=== PATIENT | female | born 1985 | race Caucasian/White ===

== ENCOUNTER 2016-07-05 06:38 | Inpatient (IN) | payer OTHER ==
[~2016-07-05] VITALS: Ht 172.7 cm; Wt 72.6 kg
[2016-07-05] VITALS (13 sets, daily range): BP systolic 101–112; BP diastolic 63–71; PULSE 60–64; TEMP 36.3–36.8; O2SAT 98–100; Ht 172.7 cm; Wt 72.6 kg
[~2016-07-05 06:38] MED LIST: CEFAZOLIN IV 2,000 MG in DEXTROSE 5% 50ML IV SCH; CITRIC ACID/SODIUM CITRATE 15 ML UDC PO SCH; LACTATED RINGER'S 1000ML 1,000 ML IV SCH; MULT-506 PO
[2016-07-05] MEDS ORDERED: LACTATED RINGER'S 1000ML 1,000 ML IV ONE (06:41)
[2016-07-05 06:58] LABS: BASO % 0.2 %; BASO ABS # 0.02 K/uL (0-0.2); COMPLETE YES; EOS % 0.4 %; HEMATOCRIT 36.7 % (37-47); IG% 0.6 %; LYMPH % 21.1 %; LYMPH ABS # 2.27 K/uL (1.2-3.4); MEAN CELL VOLUME 92.7 fL (80-100); MEAN CORPUSCULAR HEMOGLOBIN 32.1 pg (25-34); MEAN CORPUSCULAR HGB CONC 34.6 g/dl (32-36); MEAN PLATELET VOLUME 9.1 fL (7.4-10.4); MONO % 9.6 %; NEUT % 68.1 %; PLATELET COUNT 290 K/uL (130-400); RED BLOOD COUNT 3.96 M/uL (4.2-5.4); WHITE BLOOD COUNT 10.78 K/uL (4.8-10.8)
[2016-07-05] MEDS ORDERED: OXYTOCIN INJ 10 UNITS/ML VIAL ONE (07:25)
[2016-07-05] MEDS ORDERED: MoRPHine SULFATE PF 1 MG/ML 10 ML AMP/VIAL ONE (07:25)
[2016-07-05] MEDS ORDERED: FENTANYL CITRATE INJ 50 MCG/1 ML 2 ML VIAL ONE (07:25)
--- NOTE | 2016-07-05 07:33 | History & Physical Bridge Note ---
H&P Re-Evaluation Bridge Note: I have examined the patient, reviewed the History & Physical and in the interval since the performance of the History & Physical I have noted the following changes of clinical significance: No changes noted Bed side US done: Breech presentation
[2016-07-05] MEDS ORDERED: EpHEDrine SULFATE INJ 50 MG/ML AMP IV PRN ×2 (07:45→09:45)
[2016-07-05] MEDS ORDERED: ONDANSETRON INJ 2 MG/ML 2 ML VIAL IV PRN (07:45)
[2016-07-05] MEDS ORDERED: ATROPINE SULFATE 0.1 MG/ML 5ML SYR IV PRN (07:45)
[2016-07-05] MEDS ORDERED: FENTANYL CITRATE INJ 50 MCG/1 ML 2 ML VIAL IV PRN (07:45)
[2016-07-05] MEDS ORDERED: PEDI1CHW82 PO (07:50)
[2016-07-05] MEDS ORDERED: MEASLES, MUMPS & RUBELLA VIRUS VIAL SQ. ONE (09:30)
[2016-07-05] MEDS ORDERED: DIPHTHERIA/TETANUS/PERTUSSIS 0.5 ML SYR/VIAL IM. ONE (09:30)
[2016-07-05] MEDS ORDERED: BENZOCAINE 20% AER SPR 82.5 GM CAN EXT PRN (09:30)
[2016-07-05] MEDS ORDERED: SUPERCREAM 0.870 % 15GM JAR EXT PRN (09:30)
[2016-07-05] MEDS ORDERED: MAGNESIUM HYDROXIDE SUSP 30 ML UDC PO PRN (09:30)
[2016-07-05] MEDS ORDERED: HYDROCORTISONE ACETATE 25 MG SUPP PR PRN (09:30)
[2016-07-05] MEDS ORDERED: LANOLIN OINT EXT PRN ×2 (09:30)
[2016-07-05] MEDS ORDERED: SENNA 8.6 MG TAB PO PRN (09:30)
[2016-07-05] MEDS ORDERED: LACTATED RINGER'S 1000ML 1,000 ML IV SCH (09:30)
[2016-07-05] MEDS ORDERED: PROMETHAZINE HCL INJ 25 MG in SODIUM CHLORIDE 0.9% 50ML 50 ML IV PRN (09:30)
--- NOTE | 2016-07-05 09:35 | [facility] Post Operative Brief Note ---
Immediate Operative Summary Operative Date Jul 05, 2016. Pre-Operative Diagnosis Primary Caesarean Section for Breech Presentation; Pt desires Bilateral Tubal Ligation. Post-Operative Diagnosis Same as Preop Procedure(s) Performed Live Female at [address] [facility] Surgeon Dr. Beaulieu Csw Surgeon(s) Dr. Whitehead Estimated Blood Loss 500 ml Findings Apgars 9/9 Fluids (cc crystalloids) 1000 ml Specimens Placenta (Hold) Cord Blood Portions Left and Right Fallopian Tubes Drains 100 ml urine Anesthesia spinal Complication(s) None Disposition L&D
--- NOTE | 2016-07-05 09:41 | Anesthesiology Progress Note ---
Anesthesia Post Op Note Date & Time Jul 05, 2016 at 09:41 Notes Mental Status: alert / awake / arousable, participated in evaluation Pt Amnestic to Procedure: Yes Nausea / Vomiting: adequately controlled Pain: adequately controlled Airway Patency, RR, SpO2: stable & adequate BP & HR: stable & adequate Hydration State: stable & adequate Neuraxial Anesthesia: was administered, sensory block is resolving Anesthetic Complications: no major complications apparent
[2016-07-05] MEDS ORDERED: NALOXONE HCL INJ 0.08 MG in SYRINGE 1.8 ML IV PRN (09:42)
[2016-07-05] MEDS ORDERED: NALOXONE HCL INJ 1 MG in SODIUM CHLORIDE 0.9% 1000ML 1,000 ML IV PRN (09:42)
[2016-07-05] MEDS ORDERED: LACTATED RINGER'S 1000ML 500 ML IV PRN (09:42)
[2016-07-05] MEDS ORDERED: SODIUM CHLORIDE 0.9% 1000ML 1,000 ML IV PRN (09:42)
[2016-07-05] MEDS ORDERED: MoRPHine SULFATE PF 1 MG/ML 10 ML AMP/VIAL EPI PRN (09:45)
[2016-07-05] MEDS ORDERED: NALBUPHINE HCL INJ 10 MG/ML AMP IV PRN (09:45)
[2016-07-05] MEDS ORDERED: NALOXONE HCL 0.4 MG/1 ML VIAL/CARP IV PRN (09:45)
[2016-07-05] MEDS ORDERED: DiphenhydrAMINE HCL 50 MG/ML VIAL IV PRN (09:45)
[2016-07-05] MEDS ORDERED: NO NARCOTICS OR SEDATIVES SCH (09:45)
--- NOTE | 2016-07-05 10:19 | OPERATIVE REPORT ---
DATE OF OPERATION: 07/05/2016 PREOPERATIVE DIAGNOSIS: The patient is a 30-year-old G3, P2-0-0-2 multiparous female at 39 weeks of gestation with breech presentation. Declined external cephalic version and desired Delivery/ section and tubal sterilization. POSTOPERATIVE DIAGNOSIS: Same. PROCEDURE: Primary low transverse with Pfannenstiel skin incision and bilateral tubal ligation with Erica method. SURGEON: Dr. Rg. PRINT PROJECT MANAGER: Dr. Whitehead. ESTIMATED BLOOD LOSS: 500. FLUIDS: 1000 mL of lactated Ringer's. DRAINS: Rhodes drained 100 mL of urine. ANESTHESIA: Spinal, Dr. Dixon. COMPLICATIONS: None. FINDINGS: Baby was a viable female , Apgars 9/9, delivered at ange breech position at 8:46 a.m. Weight is 3410 grams. Maternal findings, normal uterus, fallopian tubes and ovaries. PROCEDURE: The patient was taken to the operating room where spinal anesthesia was given without difficulty. She was placed in dorsal supine position with a leftward tilt. She was prepared and draped in usual sterile fashion. A timeout was done by myself and team, and the patient agreed again for the surgery as primary and bilateral tubal ligation. The skin was tested and found to have adequate anesthesia. Then a Pfannenstiel skin incision was made, carried through to the underlying layer of fascia with the Bovie. Fascia was incised in the midline and incision extended laterally with the help of Verde scissors. Lower aspect of the fascial incision was then grasped with 2 Onur clamps, elevated, underlying rectus muscles were dissected off sharply with Verde scissors. Upper aspect of the fascial incision was grasped with 2 Onur clamps and elevated. The underlying rectus muscles were dissected sharply and bluntly with Verde scissors and the rectus muscles were in the midline. Peritoneum was entered sharply, elevating with the pickups and with the Metzenbaum scissors and the peritoneal incision was extended superiorly and inferiorly with good visualization of the bladder. Bladder blade was inserted. Vesicouterine peritoneum was identified, grasped with pickups, entered sharply with Metzenbaum scissors. Bladder flap was created digitally and the bladder blade was reinserted. The lower uterine segment was incised in transverse fashion. Incision was extended laterally. Amniotic membranes were ruptured and clear fluid was obtained and the baby's buttocks and legs delivered without difficulty and then the body and then arms, neck flexion position and then the head without any difficulty. Mouth and nose were suctioned by Dr. Shipman, who is the melter loader scrubbed into the case. The cord was clamped x2 and cut and the baby was taken by the melter loader. Then placenta was delivered manually as intact and complete. Uterus was exteriorized, cleared of all clots and debris. Incision was repaired with 0 Vicryl in a running locked fashion. A second imbricating layer was placed with 0 Vicryl in a running locked fashion. Excellent hemostasis was achieved. Then the right fallopian tube was held with Tito clamps from avascular mesosalpinx. It was tied under the loop made with plain 2/0 cat gut. Another tie was placed under the 1st tie. Then the fallopian tube was excised about 3 cm lenght and send to pathology. The base of the tube was cauterized with the Bovie. Then the left fallopian tube was held with Tito clamps from avascular mesosalpinx. It was tied under the loop made with plain 2/0 cat gut. Another tie was placed under the 1st tie. Then the fallopian tube was excised about 3 cm length and send to pathology. Excellent hemostasis was achieved. The uterus was returned to the abdomen and pelvis was irrigated with warm normal saline and suctioned. Incision was checked to be again hemostatic. Parietal peritoneum was identified, grasped with small Herlinda clamps and reapproximated with 3-0 Vicryl in a running fashion. Rectus muscles were reapproximated with the same suture of 0 Vicryl in a running fashion and good hemostasis was achieved. The rectus fascia was reapproximated with 0 Vicryl in a running fashion starting from the 2 corners meeting in the midline. Subcuticular tissue was brought together with 3-0 Vicryl in a running fashion. Skin was closed with 4-0 Monocryl in a subcuticular fashion and covered with Steri-Strips. The patient tolerated the procedure well. Sponge, lap, needle counts were correct x3. She was given 2 grams of cefazolin before surgery. She was taken to recovery room in stable condition. I attest to the content of the Intraoperative Record and any orders documented therein. Any exceptions are noted below. ALAINA
[2016-07-05] MEDS: KETOROLAC TROMETHAMINE 30 MG/ML VIAL IV. PRN ×2 (10:45→17:39)
[2016-07-05] MEDS: OXYTOCIN INJ 20 UNITS in LACTATED RINGER'S 1000ML 1,000 ML IV SCH ×2 (11:05→20:01)
[2016-07-05] MEDS: SIMETHICONE 80 MG CHEW PO SCH ×3 (12:00→20:02)
[2016-07-05] MEDS: MEPERIDINE HCL 25 MG/ML CARP IV PRN ×2 (12:52→13:06)
[2016-07-05] MEDS: DOCUSATE SODIUM 100 MG CAP PO SCH (20:02)
[2016-07-06] VITALS (7 sets, daily range): BP systolic 101–110; BP diastolic 63–67; PULSE 55–66; TEMP 36.4–36.8; O2SAT 97–100
[2016-07-06] MEDS ORDERED: DC INTRASPINAL MORPHINE SCH (02:30)
[2016-07-06] MEDS ORDERED: MEPERIDINE HCL 50 MG/ML CARP IV PRN (02:31)
[2016-07-06] MEDS ORDERED: ONDANSETRON INJ 2 MG/ML 2 ML VIAL IV PRN (02:31)
[2016-07-06] MEDS ORDERED: MEPERIDINE HCL 75 MG/ML CARP IV PRN (02:31)
[2016-07-06] MEDS ORDERED: DiphenhydrAMINE HCL 50 MG/ML VIAL IV PRN (02:31)
[2016-07-06] MEDS ORDERED: KETOROLAC TROMETHAMINE 30 MG/ML VIAL IV. PRN (02:31)
[2016-07-06] MEDS ORDERED: OXYCODONE/ACETAMINOPHEN 5-325 TAB PO PRN ×2 (02:31)
[2016-07-06 07:43] LABS: BASO % 0.1 %; BASO ABS # 0.01 K/uL (0-0.2); COMPLETE YES; EOS % 0.4 %; HEMATOCRIT 38.7 % (37-47); IG% 0.4 %; LYMPH % 12.9 %; LYMPH ABS # 1.71 K/uL (1.2-3.4); MEAN CELL VOLUME 93.3 fL (80-100); MEAN CORPUSCULAR HEMOGLOBIN 31.3 pg (25-34); MEAN CORPUSCULAR HGB CONC 33.6 g/dl (32-36); MEAN PLATELET VOLUME 9.2 fL (7.4-10.4); MONO % 7.7 %; NEUT % 78.5 %; PLATELET COUNT 254 K/uL (130-400); RED BLOOD COUNT 4.15 M/uL (4.2-5.4)
--- NOTE | 2016-07-06 08:05 | Surgery Progress Note ---
Surgery Progress Note Date of Service Jul 06, 2016. Subjective Post OP Day: 1 + ambulating, + feeling well, + flatus, + pain controlled Objective Vital Signs: Date Time Temp Pulse Resp B/P Pulse Ox O2 Delivery O2 Flow Rate FiO2 07/06/16 05:30 36.8 60 16 110/65 Room Air 07/06/16 01:00 16 98 07/06/16 00:30 36.7 55 16 110/65 98 Room Air 07/06/16 00:30 98 Room Air 07/06/16 00:00 14 98 07/05/16 23:00 14 98 07/05/16 22:00 16 98 07/05/16 21:00 16 100 07/05/16 20:30 36.8 60 20 112/71 100 Room Air 07/05/16 20:00 20 100 07/05/16 19:00 16 99 07/05/16 18:00 20 100 07/05/16 17:00 16 99 07/05/16 16:15 100 Room Air 07/05/16 16:15 36.3 64 16 105/66 100 Room Air 07/05/16 16:00 16 100 07/05/16 15:00 16 100 07/05/16 13:00 36.3 64 20 110/65 100 Room Air 07/05/16 13:00 20 100 07/05/16 12:00 20 99 07/05/16 12:00 64 16 101/63 99 Room Air 07/05/16 12:00 98 Room Air 07/05/16 12:00 99 Room Air General Appearance: no apparent distress Abdomen: non tender, non distended Incision(s): clean, dry, intact Extremities: non-tender, normal inspection, no pedal edema Laboratory Results: Results Past 24 Hours Test 07/06/16 07:25 Range/Units White Blood Count 13.30 4.8-10.8 K/uL Red Blood Count 4.15 4.2-5.4 M/uL Hemoglobin 13.0 12.0-16.0 g/dL Hematocrit 38.7 37-47 % Mean Corpuscular Volume 93.3 80-100 fL Mean Corpuscular Hemoglobin 31.3 25-34 pg Mean Corpuscular Hemoglobin Concent 33.6 32-36 g/dl Platelet Count 254 130-400 K/uL Mean Platelet Volume 9.2 7.4-10.4 fL Neutrophils (%) (Auto) 78.5 % Lymphocytes (%) (Auto) 12.9 % Monocytes (%) (Auto) 7.7 % Eosinophils (%) (Auto) 0.4 % Basophils (%) (Auto) 0.1 % Neutrophils # (Auto) 10.46 1.4-6.5 K/uL Lymphocytes # (Auto) 1.71 1.2-3.4 K/uL Monocytes # (Auto) 1.02 0.11-0.59 K/uL Eosinophils # (Auto) 0.05 0-0.5 K/uL Basophils # (Auto) 0.01 0-0.2 K/uL RDW Standard Deviation 44.9 36.4-46.3 fL RDW Coefficient of Variation 13.3 11.5-14.5 % Immature Granulocyte % (Auto) 0.4 % Immature Granulocyte # (Auto) 0.05 0.00-0.02 K/uL Assessment & Plan regular diet POD#1 advance care and diet
[2016-07-06] MEDS: FERROUS SULFATE 325 MG TAB PO SCH (08:23)
[2016-07-06] MEDS: PRENATAL VITAMIN TAB PO SCH (08:23)
[2016-07-06] MEDS: DOCUSATE SODIUM 100 MG CAP PO SCH ×2 (08:23→20:51)
[2016-07-06] MEDS: SIMETHICONE 80 MG CHEW PO SCH ×4 (08:23→20:52)
[2016-07-06] MEDS: IBUPROFEN 600 MG TAB PO PRN ×2 (11:45→15:48)
[2016-07-06] MEDS ORDERED: BISACODYL 5 MG TABEC PO ONE (22:00)
[2016-07-07 07:30] VITALS: BP 101/64; PULSE 54; TEMP 36.4; O2SAT 100
[2016-07-07] MEDS: DOCUSATE SODIUM 100 MG CAP PO SCH ×2 (07:34→20:37)
[2016-07-07] MEDS: FERROUS SULFATE 325 MG TAB PO SCH (07:34)
[2016-07-07] MEDS: PRENATAL VITAMIN TAB PO SCH (07:34)
[2016-07-07] MEDS: SIMETHICONE 80 MG CHEW PO SCH ×3 (07:34→20:36)
[2016-07-07] MEDS ORDERED: BISACODYL 10 MG SUPP PR PRN (09:30)
--- NOTE | 2016-07-07 10:02 | Surgery Progress Note ---
Surgery Progress Note Date of Service Jul 07, 2016. Subjective Post OP Day: 2 + diet (Tolerating Po food and Meds), No SOB, No bowel movement, No chest pain, No complaints, No nausea, No using DIRECTOR UTILIZATION MANAGEMENT, No vomiting Objective Vital Signs: Date Time Temp Pulse Resp B/P Pulse Ox O2 Delivery O2 Flow Rate FiO2 07/07/16 07:30 36.4 54 18 101/64 100 Room Air 07/07/16 07:30 100 Room Air 07/07/16 01:00 Room Air 07/06/16 15:41 36.4 66 16 101/63 Room Air 07/06/16 15:30 36.8 56 18 104/66 100 Room Air 07/06/16 15:30 100 Room Air General Appearance: WD/WN, no apparent distress Head: normocephalic, atraumatic Neck: supple, no adenopathy, thyroid normal, no JVD, no carotid bruits, trachea midline Respiratory/Chest: chest non-tender, lungs clear, normal breath sounds, no respiratory distress, no accessory muscle use Cardiovascular: regular rate, rhythm, no edema, no gallop, no JVD, no murmur Abdomen: normal bowel sounds, non tender, non distended, soft, no organomegaly , no pulsatile mass Incision(s): clean, dry, intact, no erythema, no drainage Extremities: normal range of motion, non-tender, normal inspection, no pedal edema, no calf tenderness, normal capillary refill, pelvis stable Laboratory Results: Results Past 24 Hours Test 07/07/16 06:16 Range/Units Hemoglobin 12.8 12.0-16.0 g/dL Hematocrit 38.0 37-47 % Assessment & Plan c/sec day #2 pt doing well anticipate disch tomorrow
[2016-07-07] MEDS: IBUPROFEN 600 MG TAB PO PRN (10:12)
[2016-07-07 16:30] VITALS: BP 106/73; PULSE 64; TEMP 36.7; O2SAT 98
[2016-07-07 23:55] VITALS: BP 110/71; PULSE 65; TEMP 36.6
--- NOTE | 2016-07-08 07:09 | Surgery Progress Note ---
Surgery Progress Note Date of Service Jul 08, 2016. Subjective Post OP Day: 3 + ambulating (+ve), + diet (tolerating ), + feeling well, + flatus, No SOB, No bowel movement, No chest pain, No complaints, No nausea, No using OUTER DIAMETER TECHNICIAN, No vomiting Objective Vital Signs: Date Time Temp Pulse Resp B/P Pulse Ox O2 Delivery O2 Flow Rate FiO2 07/07/16 23:55 Room Air 07/07/16 23:55 36.6 65 18 110/71 Room Air 07/07/16 16:30 36.7 64 18 106/73 98 Room Air 07/07/16 16:30 98 Room Air 07/07/16 07:30 36.4 54 18 101/64 100 Room Air 07/07/16 07:30 100 Room Air Assessment & Plan c/sec day #3 pt doing welldisch home with instructions c/sec day #2 pt doing well anticipate disch tomorrow
[2016-07-08] MEDS ORDERED: OXYC-57 PO (07:12)
[2016-07-08] MEDS ORDERED: CLC100 PO (07:12)
[2016-07-08] MEDS ORDERED: FRRS300 PO (07:12)
[2016-07-08] MEDS ORDERED: MTR600X PO (07:12)
--- NOTE | 2016-07-08 07:13 | Discharge Instructions ---
Discharge Instructions Admission Reason for Admission: Breech Presentation Discharge Discharge Diagnosis / Problem: postop Discharge Goals Goal(s): Routine recovery after surgery Activity Recommendations Activity Limitations: as noted below ACTIVITY RECOMMENDATIONS: * Gradual return to full activity over the next 2-3 weeks. * No lifting - nothing heavier than baby over the next 2-3 weeks. * Do not engage in vigorous exercise, sexual activity or sports until cleared by your physician. * Do not drive or operate any motorized equipment until cleared by your physician. * You may shower/bathe daily. BREAST CARE: If you are not breast feeding: * Wear a supportive bra 24 hours a day for one to two weeks. * Avoid stimulating your breasts and nipples as much as possible during the first few weeks after delivery. * When taking a shower, have the warm water hit your back, not breasts. * When your breasts feel full, apply ice packs. Usually three to four times a day helps ease the discomfort. * Take a mild pain medication (Tylenol/Motrin) when you are uncomfortable. If breast feeding: * Use breast milk to lubricate nipples. Lansinoh cream may be used for sore nipples. You do not need to remove cream prior to breast feeding. If using a different brand of cream, check the label for directions regarding removal of cream prior to nursing. * Wear a supportive bra. * If having problems with breasts or breast feeding, call a [employer] financial[employer] consultant or your health care provider. OVER THE COUNTER MEDICATION: * For discomfort or pain, you may use Acetaminophen (Tylenol), Ibuprofen (Advil ), or Naproxen (Aleve) following the package directions. * For constipation you may use Colace following the package directions. SPECIAL CARE INSTRUCTIONS: When you are discharged from the hospital, it is important for you to follow the instructions listed below: * During the first week at home, you should be able to care for yourself and your baby. In addition, the usual light household activities are encouraged. * Limit your activities to the way you feel. Do not try to clean the house or move furniture. Be sensible. * If you actively engage in sports and have done so up until the time of your delivery, you may resume these activities as soon as you feel able. This may take up to one month or even longer. Use good judgment. * Continue to take your vitamins for at least six weeks after the of your baby. * Your diet need not be limited unless you were on a special diet before your delivery. Breast-feeding mothers need around 2500 calories per day and at least 64-80 ounces of fluid per day (8 to 10 glasses). * You should eat foods from the four major food groups. Crash diets or fad diets are to be avoided. Eating lean meats, fresh fruits and vegetables, low-fat dairy products, high fiber foods and a regular exercise program, will help you get back to your pre- weight without putting your health at risk. * Constipation is sometimes a problem after delivery. Take a mild laxative as needed. If breast feeding, Milk of Magnesia is acceptable to use. You may use a suppository or Fleets enema if no episiotomy. * A daily shower or tub bath is suggested. Be sure to thoroughly and gently dry the perineum. * A bloody vaginal discharge will usually continue until around four weeks post . A small amount of bleeding may continue for as long as six weeks. Vaginal discharge changes from the bright red bleeding after delivery to pink then brownish and finally yellowish-pink before becoming white and disappearing. * Bleeding may increase with activity. Your first period may come in 4-8 weeks. If you are breast feeding, your period may be delayed even longer. * [place] (sex) can begin whenever both you and your partner feel comfortable and do not have any form of genital infection. It is recommended that you wait at least six weeks for internal and external healing to occur. If you have questions, please talk to your health care practitioner. A condom should be used to prevent infection and . * Foreplay, gentle intercourse and lubrication is very important the first several times to prevent pain. A water-based lubricant such as K-Y jelly or Astroglide may be used. * Tampons and/or Douching should be avoided until after six weeks check-up. * If you have RH negative blood and your baby is RH positive, you will receive RHOGAM by injection prior to discharge. The nurse will give you a card to keep with you that has the date and place that you received RHOGAM after delivery. * During your care, you had a Rubella screen done to check for the presence of rubella antibodies in your blood. If your test was negative, you will receive a Rubella vaccine prior to discharge. This vaccine may cause a fever, soreness at the injection site and flu-like symptoms. If these symptoms persist, notify your health care practitioner. is not advised for three months after a Rubella vaccine. * Verbalizes understanding of car seat law as reviewed with patient nursing. * Car Seat hand-out given and reviewed with patient by nursing. * Shaken baby information reviewed with patient by nursing. Call you doctor if: * Heavy bleeding (saturating several pads an hour) or passing clots the size of your fist. * A fever >101 degrees F (38.3 degrees C) on two occasions four hours apart and /or chills. * Unusual pain in the pelvic or vaginal areas. Pain should improve each day . * Call the doctor for any increased redness, drainage or swelling around the incision and any pain unrelieved by prescribed pain medication. * Any signs or symptoms of phlebitis (possible blood clots forming in the veins ): leg pain, warm, red or swollen area on leg. * "Baby Blues" lasting longer than two weeks. If you have any questions or concerns, call your health care practitioner at . FOLLOW-UP VISIT: * Incision check (staple removal) in 1 week. Please call doctor's office at to set up appointment. * Please call the office at to schedule a 6 week examination. It is important you keep this appointment. * It is important for you to make arrangements for either yearly or twice yearly check-ups thereafter. . Current Hospital Diet Patient's current hospital diet: Regular OB Diet Discharge Diet Recommended Diet: Regular Diet Procedures Procedures Performed: Live Female Infant at [address] [facility], BTL Pending Studies Studies pending at discharge: no Medical Emergencies . Who to Call and When: Medical Emergencies: If at any time you feel your situation is an emergency, please call [phone] immediately. . Non-Emergent Contact Non-Emergency issues call your: Specialist . . "Provider Documentation" section prepared by Umesh Cee. VTE Core Measure Inpt VTE Proph given/why not?: Treatment not indicated
[2016-07-08 07:20] VITALS: BP 105/75; PULSE 89; TEMP 36.5
[2016-07-08] MEDS: PRENATAL VITAMIN TAB PO SCH (07:27)
[2016-07-08] MEDS: SIMETHICONE 80 MG CHEW PO SCH (07:27)
[2016-07-08] MEDS: DOCUSATE SODIUM 100 MG CAP PO SCH (07:27)
[2016-07-08] MEDS: FERROUS SULFATE 325 MG TAB PO SCH (07:27)
[2016-07-08] MEDS: IBUPROFEN 600 MG TAB PO PRN ×2 (07:28→13:06)
[2016-07-08 13:31] VITALS: BP_DIAS 75; PULSE 89; TEMP 36.5
--- NOTE | 2016-07-09 07:49 | EDITING REQUIRED CODING QUERY ---
CODING QUERY Dr. Rg Date of Service 07-04-16 To promote full compliance with coding requirements relating to patient care, provider participation is requested in all cases of tufting machine operator uncertainty. Please assist us with the question(s) below: Coding Question(s): Please provide documentation for the tubal ligation to the OP report. Thank you. Physician's Response(s): I have provided the documentation for tubal ligation Thank you Thank you Elizabeth Ro Principal Diagnosis: "_that condition established after study, to be chiefly responsible for occasioning the admission of the patient to the hospital for care." Co-Existing Principal Diagnosis: "_when two or more diagnoses equally meet the criteria for principal diagnosis as determined by the circumstances of admission, diagnostic work up, and/or therapy provided, and the Alphabetic Index, Tabular List, or another coding guideline does not provide sequencing direction, any one of the diagnoses may be sequenced first." "When the physician has documented what appears to be a current diagnosis in the body of the record, but has not included the diagnosis in the final diagnostic statement, the physician should be asked whether the diagnosis should be added." (Source Coding [facility] 2 QTR90. p3-4)
--- NOTE | 2016-07-24 12:21 | DISCHARGE SUMMARY ---
DETAILS OF ADMISSION: The patient was a 30-year-old G3, P2-0-0-2 at 39 weeks' of gestation with breech presentation. She was admitted for scheduled primary . She declined external cephalic version. She also desired tubal sterilization. She had the surgery on 07/05/2016 as primary low transverse with Pfannenstiel skin incision and bilateral tubal ligation with Erica method. See dictated OP note for details. The patient delivered a viable female infant, Apgars 9/9 and weight was 3410 grams. On postop period, the patient did well. Vital signs stable, afebrile. Urine output was adequate. On postop day #1, the patient was doing well. Vital signs stable, afebrile. Urine output was adequate. The Rhodes was discontinued. She was ambulated. She passed gas. She tolerated regular diet. Her repeat H\T\H was 13/38 and her physical exam was unremarkable. Incision was clean, dry and intact and bleeding was minimal. She was continuously monitored. On postop day #2, the patient was doing well. Vital signs stable, afebrile. Physical exam is unremarkable. Incision was clean, dry and intact. Bleeding was minimal. Fundus was firm. Repeat H\T\H was 12/38. On postop day #3, the patient was doing well. Vital signs stable, afebrile, ambulating and tolerating regular diet, passing gas. She desired to be discharged. She was discharged on 07/08/[address] Cee. Discharge instructions were given when to call. She is to be seen in the office for incision check in a week and prescriptions were written for pain, Percocet, Motrin and all questions were answered. ALAINA
== END 2016-07-08 13:25 | disposition home or self-care (01) | DRG 766 ==
LOC: C.LD 06:38 → C.OBG 11:58 → EDSTATUS 13:56
PROVIDERS: ADMIT Obstetrics & Gynecology; ATTEND Obstetrics & Gynecology
PROC: 10D00Z1 Extraction of Products of Conception, Low, Open Approach (ICD-10-PCS; principal; 2016-07-05 08:15)
PROC: 0UL70ZZ Occlusion of Bilateral Fallopian Tubes, Open Approach (ICD-10-PCS; principal; 2016-07-05 08:15)
DX: O32.1XX0 Maternal care for breech presentation, not applicable or unspecified (principal); Z3A.39 39 weeks gestation of pregnancy; Z30.2 Encounter for sterilization

== ENCOUNTER 2017-06-01 00:17 | Emergency (ER) | payer OTHER ==
[~2017-06-01] VITALS: Ht 172.7 cm; Wt 56.6 kg
[~2017-06-01 00:17] MED LIST changes: -CEFAZOLIN IV 2,000 MG in DEXTROSE 5% 50ML IV SCH; -CITRIC ACID/SODIUM CITRATE 15 ML UDC PO SCH; +CLC100 PO; +FRRS300 PO; -LACTATED RINGER'S 1000ML 1,000 ML IV SCH; +MTR600X PO; +OXYC-57 PO; +PEDI1CHW82 PO
[2017-06-01 00:31] VITALS: TEMP 36.7; Ht 172.7 cm; Wt 56.6 kg
[2017-06-01] MEDS ORDERED: HYDR-5688 PO (00:50)
[2017-06-01] MEDS ORDERED: PENI-82 PO (00:50)
[2017-06-01] MEDS ORDERED: NORCO 5/325MG HOME PACK PO ONE (01:00)
[2017-06-01] MEDS ORDERED: PENICILLIN HOME PACK 500MG (4 DOSES)BTL PO ONE (01:00)
[2017-06-01 01:10] VITALS: BP 99/59; PULSE 52; O2SAT 98
--- NOTE | 2017-06-01 16:03 | EMERGENCY ROOM VISIT NOTE ---
ED Visit Note First contact with patient: 00:38 CHIEF COMPLAINT: Toothache HISTORY OF PRESENT ILLNESS: This 31-year-old female patient presented to the emergency department with a progressive toothache for past 3-4 days. The patient believes it is coming from a left upper and right upper molar. The pain is now steady and severe and radiates to the face. The patient has a dentist appointment set up in 4 days. They rate their pain a 10/10 and the ibuprofen and Tylenol they have been taking has not relieved the pain. She has also been trying cloves, garlic, Orajel, and ice without relief. Denies facial swelling or fever. The patient denies any discharge from the mouth. REVIEW OF SYSTEMS: A 6 system review of systems was completed with positives and pertinent negatives listed in the HPI. ALLERGIES: No known allergies MEDICATIONS: No chronic medication PMH: Otherwise healthy SOCIAL HISTORY: Lives locally PHYSICAL EXAM: Vitals are noted on the nurse's note and reviewed by myself. Vital signs stable. GENERAL: White female, in no acute distress, nondiaphoretic, well-developed well -nourished. Mouth: The left upper #15 and 16 tooth is very carious and the gum is swollen and tender around it, without any discharge or signs of an abscess. The remainder of the pharynx and tonsils are without erythema, edema, or exudate. The airway is patent. There is no facial swelling, cervical or submandibular lymphadenopathy. The patient appears uncomfortable and in pain. The patient has overall good dental hygiene. EARS: External auditory canals clear, tympanic membranes pearly brice without erythema or effusion bilaterally. HEART: Regular rate and rhythm without murmur gallop or rub LUNG: Clear to auscultation bilateral ED COURSE: Physical exam and history were performed. Nursing notes and EMR were reviewed. The patient has overall good dental hygiene, but she has a very carious #15 tooth. She has some mild decay throughout tooth #1,2, 30, and 31. She does not have obvious abscess or evidence of Hans on exam. She is not regularly seen here at the facility, and has never been seen here for dental pain. She has an appointment upcoming. There are no concerning findings in the PDMP. The patient will be given a course of Pen-Vee K and Vicodin. She is to keep her appointment this week as scheduled. She was otherwise invited back to the ER with any new, worsening, or concerning symptoms. Problem List Medical Problems: (1) No significant medical problems Status: Chronic Surgical Problems: (1) No significant past surgical history Status: Chronic Current/Historical Medications Scheduled Penicillin V Potassium (Veetids), 500 MG PO QID Scheduled PRN Hydrocodone/Acetaminophen 5MG/325MG ([place] 5MG/325MG), 1-2 TABLET PO Q6 PRN for Pain Allergies Coded Allergies: No Known Allergies (Unverified , 06/01/17) Vital Signs Date Time Temp Pulse Resp B/P (MAP) Pulse Ox O2 Delivery O2 Flow Rate FiO2 06/01/17 01:10 52 16 99/59 98 06/01/17 00:31 36.7 87 20 102/72 97 Room Air Medications Administered Medications (Trade) Dose Ordered Sig/Jamshid Route Start Time Stop Time Status Last Admin Dose Admin Penicillin V Potassium (Pen-Vk 500MG Home Pack) 1 homepack UD ONCE PO 06/01/17 01:00 06/01/17 01:01 DC 06/01/17 01:09 1 HOMEPACK Acetaminophen/ Hydrocodone Bitart ([place] 5/325mg Home Pack) 1 homepack UD ONCE PO 06/01/17 01:00 06/01/17 01:01 DC 06/01/17 01:09 1 HOMEPACK Departure Information Impression Primary Impression: Pain, dental Dispostion Home / Self-Care Condition GOOD Prescriptions Hydrocodone/Acetaminophen 5MG/325MG ([place] 5MG/325MG) Tab 1-2 TABLET PO Q6 Y for Pain, #15 TAB For Initial Treatment Prov: Dar Pennington PA-C 06/01/17 Penicillin V Potassium (Veetids) 500 Mg Tab 500 MG PO QID for 9 Days, #36 TAB Prov: Dar Pennington PA-C 06/01/17 Forms HOME CARE DOCUMENTATION FORM, IMPORTANT VISIT INFORMATION Patient Instructions My [facility] Additional Instructions You were seen and evaluated today on an emergency basis only. This is not a substitute for, or an effort to provide, complete comprehensive medical care. It is not possible to recognize and treat all injuries or illnesses in a single emergency department visit. For this reason it is recommended that you followup with your dentist as scheduled for ongoing care and evaluation. For baseline pain relief you may alternate ibuprofen and acetaminophen every 4 hours for pain control. Take 600 mg ibuprofen (Advil) and then 4 hours later take 1000 mg acetaminophen (Tylenol). Do not take more than 3000 mg acetaminophen in a single day. [place] (hydrocodone/acetaminophen) 5/325 mg every 6 hours as needed for worsening breakthrough pain. Do not drink or drive on [place]. This medication will likely make you tired. Do not take [place] and Tylenol at the same time as both contain acetaminophen. [place] may cause constipation. You may wish to take an [id number] stool softener like Colace if this occurs. Take Pen-Vee K 500 mg 4 times daily for the next 10 days Keep your dentist appointment as scheduled You are welcome to return to the emergency department anytime with new, worsening, or concerning symptoms.
== END 2017-06-01 01:13 | disposition home or self-care (01) ==
LOC: C.EDB 00:18
DX: K08.89 Other specified disorders of teeth and supporting structures (principal)

== ENCOUNTER 2017-07-12 21:07 | Emergency (ER) | payer OTHER ==
[~2017-07-12] VITALS: Ht 174 cm; Wt 57.2 kg
[~2017-07-12 21:07] MED LIST changes: -CLC100 PO; -FRRS300 PO; +HYDR-5688 PO; -MTR600X PO; -MULT-506 PO; -OXYC-57 PO; -PEDI1CHW82 PO
[2017-07-12 21:11] VITALS: BP 116/74; PULSE 82; TEMP 36.7; O2SAT 97; Ht 174 cm; Wt 57.2 kg
--- NOTE | 2017-07-12 21:47 | EMERGENCY ROOM VISIT NOTE ---
History Report prepared by Sander: Cliff Yeung Under the Supervision of: Dr. Pavan Garg M.D. First contact with patient: 21:27 Chief Complaint: ILLNESS Stated Complaint: JAW PAIN WITH FEVER History of Present Illness The patient is a 41 year old female who presents to the ED with a cc of a constant, dull, achy jaw discomfort beginning today. Positive for a fever, headache, and sinus pressure. Negative for congestion, rhinorrhea, popping/ locking/grinding her teeth, TMJ pain, chills, pain in her upper teeth, ear pain , nausea, vomiting, CP, SOB, and cough. The patient states that she has had jaw pain that is located on her left side since this morning. She notes that she had a filling in two of her teeth on the side of her pain a few weeks ago. She reports that she took her temperature this afternoon, and states that she had a temperature of 101.1. She notes that her headache is located around her eyes, nose, and forehead, but does not radiate anywhere else. The patient reports that she last took Tylenol at around 1730 today with some relief of her pain. She notes that she did not have her flu shot this year and reports that her kids were recently sick. Source of History: patient Onset: today Position: jaw (left) Quality: ache, dull Timing: constant Modifying Factors (Relieving): other (Tylenol) Associated Symptoms: + fevers (101.1), + headache, No chills, No cough, No chest pain, No SOB, No nausea Note: The patient also complains of sinus pressure. She denies any congestion, rhinorrhea, popping/locking/grinding her teeth, ear pain, TMJ pain, and pain in her upper teeth. Review of Systems See HPI for pertinent positives and negatives. A total of ten systems were reviewed and were otherwise negative. Past Medical & Surgical Medical Problems: (1) No significant medical problems Surgical Problems: (1) No significant past surgical history (2) Previous section Family History FH: diabetes mellitus Social History Smoking Status: Never Smoker Smokeless Tobacco Use: No Alcohol Use: none Drug Use: none Marital Status: Housing Status: lives with family Occupation Status: employed Current/Historical Medications Scheduled PRN Hydrocodone/Acetaminophen 5MG/325MG ([place] 5MG/325MG), 1-2 TABLET PO Q6 PRN for Pain Allergies Coded Allergies: No Known Allergies (Unverified , 06/01/17) Physical Exam Vital Signs Date Time Temp Pulse Resp B/P (MAP) Pulse Ox O2 Delivery O2 Flow Rate FiO2 07/12/17 21:11 36.7 82 18 116/74 97 Room Air Physical Exam GENERAL: Awake, alert, well-appearing, NAD HENT: Normocephalic, atraumatic, clear left TM, non popping or clicking of TMJ, no evidence of odontogenic infection, posterior oropharynx clear, no stridor, mild reproducible maxillary sinus TTP. EYES: Normal conjunctiva. Sclera non-icteric. NECK: Supple. No nuchal rigidity. FROM. RESPIRATORY: CTAB, no rhonchi, wheezing, crackles CARDIAC: RRR, no MRG ABDOMEN: Soft, NTND, BS+ MSK: No chest wall TTP, no LE edema NEURO: GCS 15, CN 2-12 intact, moves all 4s on command SKIN: No rash or jaundice noted. Medical Decision & Procedures ED Course 2142: At this time the patient was evaluated by the medical student. The student 's findings were discussed with me. We discussed a possible treatment plan and differential diagnoses for the patient. 2205: The patient was evaluated in room C8. A complete history and physical exam was performed. 2302: I reevaluated the patient. Discussed results and discharge instructions: She verbalized understanding and agreement. The patient is ready for discharge. Medical Decision The patient is a 41 year old female who presents to the ED with a cc of a constant, dull, achy jaw discomfort beginning today. Positive for a fever, headache, and sinus pressure. Negative for congestion, rhinorrhea, popping/ locking/grinding her teeth, TMJ pain, chills, pain in her upper teeth, ear pain , nausea, vomiting, CP, SOB, and cough. Differential diagnoses include: URI, flu, TMJ pain, otitis media, dental infection, and pharyngitis. Patient was seen and evaluated the bedside. Patient was complaining some mild left-sided jaw pain. Patient also noted that she had a slight fever. Patient also did complain of some sinus pressure but without any drainage. On exam the patient has no erythema of the TM and does not have an effusion. The posterior pharynx is clear. She does not have any signs of odontogenic infection. The patient has no popping or locking when opening or closing the jaw. The posterior pharynx is clear. Patient is otherwise very well-appearing. I did discuss this with the patient. She may have a viral infection which may be coinciding with her jaw discomfort. Given that she does not have any swelling of the neck face and does not have any trismus I do not believe she requires any blood work or imaging. The patient family member are agreeable with this plan of care. Patient was told to follow-up as needed. Patient was given strict follow-up, discharge, and return precautions. All questions were answered. Patient was deemed suitable for outpatient follow-up at this time. Patient agreed with the plan of care and was safely discharged home. Head Trauma GCS Score: 15 Blood Pressure Screening Patient's blood pressure: Normal blood pressure Blood pressure disposition: Did not require urgent referral Impression Primary Impression: Jaw pain Scribe Attestation The scribe's documentation has been prepared under my direction and personally reviewed by me in its entirety. I confirm that the note above accurately reflects all work, treatment, procedures, and medical decision making performed by me. Departure Information Dispostion Home / Self-Care Referrals No Doctor, Assigned (PCP) Forms HOME CARE DOCUMENTATION FORM, IMPORTANT VISIT INFORMATION, WORK / SCHOOL INSTRUCTIONS Patient Instructions ED Fever Control, [facility] Additional Instructions Please return to the emergency department if you have worsening or recurrent symptoms not amenable to at-home treatment. Please call for a follow-up appointment with her primary care physician. Please take your medications as prescribed. If you have other concerns and/or complaints please feel free to also call your primary care physician's office or return the ED for further evaluation, management, and treatment. You may take 600 mg Ibuprofen every 6 hours as needed for pain with food for no more than 2 consecutive days. You may take tylenol 1000 mg every 6 hours as needed for pain. You may take motrin and tylenol separately or at the same time. Consider using saline nasal sprays, humidifier, or hot showers. If your jaw pain worsens with chewing food and consider a soft or liquid diet. You have been examined and treated today on an emergency basis only. This is not a substitute for, or an effort to provide, complete comprehensive medical care. It is impossible to recognize and treat all injuries or illnesses in a single emergency department visit. It is therefore important that you follow up closely with [facility], your PCP, and/or your specialist(s). Call as soon as possible for an appointment. Thank you for your time and consideration. I look forward to speaking with you again soon. Please don't hesitate to call us if you have any questions.
== END 2017-07-12 22:15 | disposition home or self-care (01) ==
LOC: C.EDB 21:08 → C.EDC 22:15
DX: R68.84 Jaw pain (principal); Z83.3 Family history of diabetes mellitus